=== PATIENT | male | born 1980 | race Caucasian/White ===

== ENCOUNTER 2018-04-24 10:38 | Emergency (ER) | payer OTHER, MEDICAID, SELFPAY ==
[2018-04-24 10:33] VITALS: BP 116/72; PULSE 59; RESP 14; TEMP 36.8; O2SAT 99
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
--- NOTE | 2018-04-24 10:48 | DI.CT.S_ITS ---
PROCEDURE: CT CERVICAL SPINE WO CON INDICATIONS: Neck pain after fall TECHNIQUE: Noncontrast 3 mm thick sections acquired from the skull base to the T4 level. Sagittal and coronal reformats were then constructed. For radiation dose reduction, the following was used: automated exposure control, adjustment of mA and/or kV according to patient size. COMPARISON: None. FINDINGS: Image quality: Excellent. Bones: No fractures or dislocations. Visualized superior ribs are intact. Soft tissues: Prevertebral soft tissues are normal in thickness. No paravertebral hematomas. No apical pneumothoraces. IMPRESSION: No visualized fracture. Dictated by: Gabby Bryant M.D. on 04/24/2018 at 11:16 Approved by: Gabby Bryant M.D. on 04/24/2018 at 11:17
[2018-04-24 10:58] LABS: Add Manual Diff / Slide Review NO; Basophils Percent Auto 1.1 % (0-2); Eosinophils Percent Auto 2.7 % (2-4); Hematocrit 42.7 % (41-53); Hemoglobin 14.5 g/dL (13.5-17.5); Lymphocytes Percent Auto 30.6 % (25-40); Mean Corpuscular HGB Conc 34.1 % (30-36); Mean Corpuscular Hemoglobin 33.4 PG (26-34); Monocytes Percent Auto 8.1 % (3-14); Neutrophils Absolute Auto 3000 /uL (3000-5900); Neutrophils Percent Auto 57.5 % (50-75); Platelet Count 215 X10^3/uL (150-400); Red Blood Cell Count 4.35 X10^6/uL (4.5-5.9); Red Cell Distribution Width 12.6 % (11.6-14.8); White Blood Cell Count 5.2 X10^3/uL (4.5-11.0)
--- NOTE | 2018-04-24 11:00 | PC.NURSE ---
1030: Pt c/o neck pain w/ movement. No point tenderness. Placed in rigid collar. MD aware. Neuro intact.
[2018-04-24 11:02] LABS: INR 1.1 (0.9-1.3); Prothrombin Time 11.6 SECONDS (10.1-12.7)
[2018-04-24 11:05] LABS: PTT Partial Thromboplastin Tim 26 SECONDS (26.4-36.2)
[2018-04-24 11:08] LABS: Alanine Aminotransferase 31 IU/L (21-72); Albumin 4.2 g/dL (3.5-5.0); Albumin Globulin Ratio 1.7 (1.0-2.8); Alkaline Phosphatase 54 U/L (38-126); Aspartate Aminotransferase 24 IU/L (17-59); BUN Creatinine Ratio 18.8 (6-22); Bilirubin Total 0.6 mg/dL (0.2-1.3); Blood Urea Nitrogen 15 mg/dL (9-20); Carbon Dioxide 28 mmol/L (22-32); Chloride 107 mmol/L (98-107); Estimated Glomerular Filt Rate > 60.0 mL/min (>60); Ethanol (ETOH) < 10 mg/dL; Globulin 2.5 g/dL (1.7-4.1); Glucose 96 mg/dL (70-100); HEMOLYSIS < 15 (0-50); Lipase 45 U/L (23-300); Potassium 4.4 mmol/L (3.4-5.1); Sodium 144 mmol/L (137-145); Total Protein 6.7 g/dL (6.3-8.2)
[2018-04-24 11:09] VITALS: BP 104/68; PULSE 68; RESP 15; O2SAT 98
[2018-04-24 11:24] LABS: Prolactin 30.1 ng/mL (3.7-17.9)
[2018-04-24 12:04] VITALS: BP 114/71; PULSE 62; RESP 16; O2SAT 100
[2018-04-24 13:00] VITALS: BP 111/73; PULSE 63; RESP 18; O2SAT 98
[2018-04-24 13:32] VITALS: BP 125/61; PULSE 65; RESP 15; O2SAT 99
== END 2018-04-24 13:56 | disposition home or self-care (01) ==
PROVIDERS: Emergency Provider Emergency Medicine
DX: R56.9 Unspecified convulsions (principal)
CPT/HCPCS: 70450; 72125; 80053; 80320; 83690; 84146; 85025; 85610; 85730; 93005; 99283; 99285; 99291

== ENCOUNTER 2020-05-11 09:31 | Emergency (ER) | payer OTHER, MEDICAID, SELFPAY ==
[2020-05-11] VITALS (26 sets, daily range): BP systolic 105–140; BP diastolic 49–89; PULSE 56–84; RESP 9–24; TEMP 36.3–36.9; O2SAT 93–100
--- NOTE | 2020-05-11 09:40 | ED.GENADULT ---
HPI - General Adult General Chief complaint: Seizure Stated complaint: seizure Time Seen by Provider: 05/11/20 09:35 Source: patient and EMS Mode of arrival: EMS Limitations: other (Somewhat postictal) History of Present Illness HPI narrative: Patient is a 40-year-old male. Known history of seizures since age of 37. Is currently taking seizure medication (trileptal) per his . Brought in by EMS after having multiple seizures this morning. not immediately available for discussion however EMS states that she told them that he has not had a seizure in almost a year. states she has been making sure he has been taking his seizure medication on a daily basis. Patient states that he has headache in this tired but has no other complaints. Shortly after arrival he did start having vomiting. Related Data Home Medications Medication Instructions Recorded Confirmed gabapentin 1,200 mg PO BID 05/11/20 05/11/20 ibuprofen 200 mg PO Q6H PRN 05/11/20 05/11/20 oxcarbazepine 300 mg PO BID 05/11/20 05/11/20 sertraline 50 mg PO BEDTIME 05/11/20 05/11/20 Allergies Allergy/AdvReac Type Severity Reaction Status Date / Time Penicillins Allergy Severe Anaphylaxis Verified 05/11/20 09:55 Review of Systems Constitutional Constitutional: Reports headache(s) ENT Ears, Nose, Mouth, and Throat: Reports headache(s) Cardiovascular Cardiovascular: Denies chest pain and Denies dyspnea Respiratory Respiratory: Denies dyspnea Gastrointestinal Gastrointestinal: Denies abdominal pain, Reports nausea and Reports vomiting Genitourinary Genitourinary: Denies dysuria Genitourinary: Denies dysuria Musculoskeletal Musculoskeletal: Denies arthralgias and Denies myalgias Integumentary/Breasts Skin/Breast: Denies rash Neurologic Neurologic: Reports confusion, Reports headache(s) and Reports seizure-like activity Psychiatric Psychiatric: Reports confusion Hematologic/Lymphatic Hematologic/Lymphatic: Denies easy bleeding and Denies easy bruising Patient History Medical History DVT of upper extremity (deep vein thrombosis) Pacemaker Syncope and collapse Surgical History (Updated 04/24/18 @ 12:45 by Zana Pereira DO) History of permanent cardiac pacemaker placement Social History marital status: Smoking Status: Current every day smoker Smoking Status: Current every day smoker alcohol intake frequency: 0-2 drinks per day Substance Use Type: marijuana Exam Initial Vital Signs Initial Vital Signs: Vital Signs Temperature 97.4 F L 05/11/20 09:35 Pulse Rate 72 05/11/20 09:35 Respiratory Rate 22 05/11/20 09:35 Blood Pressure 135/80 05/11/20 09:35 Pulse Oximetry 99 05/11/20 09:35 Const General: comfortable and well groomed HENMT Head: normal to inspection and normocephalic Resp Effort & Inspection: normal respiratory effort Auscultation: clear to auscultation bilaterally Cardio Rate: regular rate Rhythm: regular rhythm GI Inspection: non-distended Palpation: soft Skin Lesions: no lesions Rashes: no rashes Neuro General: patient alert and patient awake Cognition: normal cognition Speech: speech normal Extrem General: normal to inspection and capillary refill normal Psych Appearance: grossly normal and well kempt Course Orders Ordered: ED Orders 05/11/20 10:15 Urinalysis and Microscopic Stat Urine Drug Screen, Rapid Stat 05/11/20 10:25 COVID19 Stat 05/11/20 16:23 CT head/brain wo con Stat Sodium Chloride (Normal Saline 0.9%) 1,000 mls @ 125 mls/hr IV CONT LUX Last Infusion: 05/11/20 16:50 Dose: 0 mls/hr Documented by: Admin: 05/11/20 09:56 Dose: 125 mls/hr Documented by: STEFANIE Discontinued Medications Fosphenytoin Sodium 1,200 mg/ (Sodium Chloride) 124 mls @ 248 mls/hr IV NOW ONE Stop: 05/11/20 17:44 Last Admin: 05/11/20 17:38 Dose: 248 mls/hr Documented by: STEFANIE Ketorolac Tromethamine (Ketorolac 60 Mg/2 Ml Vial) 30 mg IV NOW ONE Stop: 05/11/20 09:58 Last Admin: 05/11/20 09:59 Dose: 30 mg Documented by: STEFANIE Lorazepam (Lorazepam 2 Mg/Ml Inj) 2 mg IV NOW ONE Stop: 05/11/20 10:31 Last Admin: 05/11/20 11:04 Dose: Not Given Documented by: STEFANIE Ondansetron HCl (Ondansetron 4 Mg/2 Ml Inj) 4 mg IV NOW ONE Stop: 05/11/20 09:43 Last Admin: 05/11/20 09:55 Dose: 4 mg Documented by: STEFANIE Ondansetron HCl (Ondansetron 4 Mg/2 Ml Inj) 4 mg IV NOW ONE Stop: 05/11/20 13:05 Last Admin: 05/11/20 13:08 Dose: 4 mg Documented by: STEFANIE Vital Signs Vital signs: Vital Signs - 8 hr 05/11/20 11:00 05/11/20 11:30 05/11/20 12:00 Temperature Pulse Rate 71 70 70 Respiratory Rate Blood Pressure 131/77 135/81 110/53 L Pulse Oximetry 98 97 97 05/11/20 12:30 05/11/20 12:37 05/11/20 13:00 Temperature Pulse Rate 69 74 82 Respiratory Rate Blood Pressure 137/49 L 111/55 L 122/76 Pulse Oximetry 97 97 05/11/20 13:30 05/11/20 14:00 05/11/20 14:09 Temperature Pulse Rate 71 68 56 L Respiratory Rate 15 16 9 L Blood Pressure 128/65 135/78 140/72 Pulse Oximetry 97 93 05/11/20 14:30 05/11/20 15:00 05/11/20 15:30 Temperature Pulse Rate 70 82 77 Respiratory Rate 14 15 16 Blood Pressure 119/64 123/76 105/56 L Pulse Oximetry 97 98 97 05/11/20 16:00 05/11/20 16:26 05/11/20 16:33 Temperature Pulse Rate 82 69 76 Respiratory Rate 16 11 L Blood Pressure 111/59 L 122/89 Pulse Oximetry 97 93 95 05/11/20 16:34 05/11/20 17:00 05/11/20 17:30 Temperature Pulse Rate 66 70 80 Respiratory Rate 19 15 14 Blood Pressure 127/76 123/67 122/71 Pulse Oximetry 96 97 96 05/11/20 18:00 05/11/20 18:04 05/11/20 18:30 Temperature 98.5 F Pulse Rate 78 72 84 Respiratory Rate 19 Blood Pressure 133/74 126/77 112/62 Pulse Oximetry 94 97 Medical Decision Making Medical Records Medical records reviewed: Yes I reviewed the patient's medical records. Lab Data Lab results reviewed: Yes I reviewed the patient's lab results. Result diagrams: 05/11/20 09:30 05/11/20 09:30 Labs: Lab Results 05/11/20 05/11/20 05/11/20 Range/Units 09:30 09:30 10:15 WBC 5.8 (4.5-11.0) X10^3/uL RBC 4.36 L (4.5-5.9) X10^6/uL Hgb 14.6 (13.5-17.5) g/dL Hct 42.2 (41-53) % MCV 96.8 (80-100) fL MCH 33.4 (26-34) PG MCHC 34.5 (30-36) % RDW 12.8 (11.6-14.8) % Plt Count 283 (150-400) X10^3/uL Neut % (Auto) 73.0 (50-75) % Lymph % (Auto) 19.2 L (25-40) % [place] % (Auto) 6.3 (3-14) % Eos % (Auto) 0.6 L (2-4) % Baso % (Auto) 0.9 (0-2) % Neut # (Auto) 4300 (5074-0220) /uL Lymph # (Auto) 1100 (6184-3103) /uL [place] # (Auto) 400 (0-900) /uL Eos # (Auto) 0 (0-450) /uL Baso # (Auto) 100 (0-100) /uL Sodium 131 L (137-145) mmol/L Potassium 5.0 (3.4-5.1) mmol/L Chloride 99 (98-107) mmol/L Carbon Dioxide 30 (22-32) mmol/L BUN 12 (9-20) mg/dL Creatinine 0.69 (0.66-1.25) mg/dL Estimated GFR > 60.0 (>60) mL/min BUN/Creatinine Ratio 17.4 (6-22) Glucose 116 H (70-100) mg/dL Calcium 8.9 (8.4-10.2) mg/dL Total Bilirubin 0.4 (0.2-1.3) mg/dL AST 27 (17-59) IU/L ALT 16 (<50) IU/L Alkaline Phosphatase 65 (38-126) U/L Total Protein 7.0 (6.3-8.2) g/dL Albumin 4.4 (3.5-5.0) g/dL Globulin 2.6 (1.7-4.1) g/dL Albumin/Globulin Ratio 1.7 (1.0-2.8) Lipase 305 H (23-300) U/L Prolactin 25.2 H (3.7-17.9) ng/mL Urine Color Yellow Urine Appearance Clear Urine pH 6.5 (4.5-8.0) Ur Specific [place] 1.020 (1.000-1.035) Urine Protein Negative (Negative) Urine Glucose (UA) Negative (Negative) g/dL Urine Ketones Negative (NEGATIVE) Urine Occult Blood Negative (Negative) Urine Nitrate Negative (Negative) Urine Bilirubin Negative (NEGATIVE) Urine Urobilinogen 0.2 (0.2) E.U./dL Ur Leukocyte Esterase Negative (NEGATIVE) Urine RBC None seen (0-5/HPF) Urine WBC 0-1/hpf (0-5/HPF) Urine Bacteria None seen (None) Urine Mucus 1+ H (Negative) Ur Culture Indicated? Cult not indicated U Opiates 300ng/mL cut (Negative) Ur Oxycodone Screen (Negative) Urine Methadone Screen (Negative) Ur Barbiturates Screen (Negative) U Tricyclic Antidepress (Negative) Ur Phencyclidine Scrn (Negative) Ur Amphetamines Screen (Negative) U Methamphetamines Scrn (Negative) Ur MDMA Scrn (Ecstasy) (Negative) U Benzodiazepines Scrn (Negative) Urine Cocaine Screen (Negative) U Marijuana (THC) Screen (Negative) Ethyl Alcohol < 10 ( - 10) mg/dL COVID-19 PCR (Negative) 05/11/20 05/11/20 Range/Units 10:15 10:25 WBC (4.5-11.0) X10^3/uL RBC (4.5-5.9) X10^6/uL Hgb (13.5-17.5) g/dL Hct (41-53) % MCV (80-100) fL MCH (26-34) PG MCHC (30-36) % RDW (11.6-14.8) % Plt Count (150-400) X10^3/uL Neut % (Auto) (50-75) % Lymph % (Auto) (25-40) % [place] % (Auto) (3-14) % Eos % (Auto) (2-4) % Baso % (Auto) (0-2) % Neut # (Auto) (8370-5661) /uL Lymph # (Auto) (7411-0478) /uL [place] # (Auto) (0-900) /uL Eos # (Auto) (0-450) /uL Baso # (Auto) (0-100) /uL Sodium (137-145) mmol/L Potassium (3.4-5.1) mmol/L Chloride (98-107) mmol/L Carbon Dioxide (22-32) mmol/L BUN (9-20) mg/dL Creatinine (0.66-1.25) mg/dL Estimated GFR (>60) mL/min BUN/Creatinine Ratio (6-22) Glucose (70-100) mg/dL Calcium (8.4-10.2) mg/dL Total Bilirubin (0.2-1.3) mg/dL AST (17-59) IU/L ALT (<50) IU/L Alkaline Phosphatase (38-126) U/L Total Protein (6.3-8.2) g/dL Albumin (3.5-5.0) g/dL Globulin (1.7-4.1) g/dL Albumin/Globulin Ratio (1.0-2.8) Lipase (23-300) U/L Prolactin (3.7-17.9) ng/mL Urine Color Urine Appearance Urine pH (4.5-8.0) Ur Specific [place] (1.000-1.035) Urine Protein (Negative) Urine Glucose (UA) (Negative) g/dL Urine Ketones (NEGATIVE) Urine Occult Blood (Negative) Urine Nitrate (Negative) Urine Bilirubin (NEGATIVE) Urine Urobilinogen (0.2) E.U./dL Ur Leukocyte Esterase (NEGATIVE) Urine RBC (0-5/HPF) Urine WBC (0-5/HPF) Urine Bacteria (None) Urine Mucus (Negative) Ur Culture Indicated? U Opiates 300ng/mL cut Negative (Negative) Ur Oxycodone Screen Negative (Negative) Urine Methadone Screen Negative (Negative) Ur Barbiturates Screen Negative (Negative) U Tricyclic Antidepress Negative (Negative) Ur Phencyclidine Scrn Negative (Negative) Ur Amphetamines Screen Negative (Negative) U Methamphetamines Scrn Negative (Negative) Ur MDMA Scrn (Ecstasy) Negative (Negative) U Benzodiazepines Scrn Negative (Negative) Urine Cocaine Screen Negative (Negative) U Marijuana (THC) Screen Positive H (Negative) Ethyl Alcohol ( - 10) mg/dL COVID-19 PCR Negative (Negative) Imaging Data CT scan - head: Radiologist's Impression: [address] [id number] Scan ReportSigned Patient: Zana Corona LMR#: [id number]: 1980Acct:[id number]/Sex: 40 / MDate of Service: 05/11/20Loc: EDAccession Number: [id number] Procedure: CT head/brain wo con Ordering Provider: Zana Pereira D.O. PROCEDURE: CT HEAD/BRAIN WO CON INDICATIONS: AMS TECHNIQUE: Noncontrast 4.5 mm thick angled axial sections acquired from the foramen magnum to the vertex, with coronal and sagittal reformats. For radiation dose reduction, the following was used: automated exposure control, adjustment of mA and/or kV according to patient size. COMPARISON: [facility], CT, CT BRAIN WO CON, 04/25/2016, 10:10. [facility], CT, CT HEAD/BRAIN WO CON, 04/24/2018, 10:45. FINDINGS: Image quality: Excellent. CSF spaces: Basal cisterns are patent. No extra-axial fluid collections. Ventricles are normal in size and shape. Brain: No midline shift. No intracranial masses or hemorrhage. Perry-white matter interface is normal. Skull and face: Calvarium and visualized facial bones are intact, without suspicious lesions. Sinuses: Visualized sinuses and mastoids are clear. IMPRESSION: Unremarkable intracranial study for age, without a cause of the presenting symptoms identified. Dictated by: Billy Quintanilla M.D. on 05/11/2020 at 15:43 Approved by: Billy Quintanilla M.D. on 05/11/2020 at 15:44 3 ECG Data Attestation: I personally reviewed and interpreted this ECG as follows: Prior ECG tracings: not available for review Interpretation: Sinus rhythm LVH Normal axis Normal QRS MDM Narrative Medical decision making narrative: [age] history of seizures. He is followed by Dr. Pineda at [facility]. Is currently on 2 anticonvulsant medications. Had what appears to be 3 generalized tonic-clonic seizures this morning. His girlfriend is at bedside and states that he normally has focal/partial seizures. He has never had generalized tonic-clonic in the past. After the 3rd seizure she contacted EMS. Upon arrival patient was confused. He then fell asleep. He then had 1 further generalized tonic clonic here in the emergency department with his by myself. Lasted less than 30 seconds. He was given 2 mg of Ativan afterwards. He was then observed in the emergency department for several hours afterwards. He had episodes where he would have nausea had become diaphoretic and appeared to be confused. Initially I thought this was secondary to the multiple seizures he had this morning, the Ativan, and the fact that he just tried to drink fluids. At 1 point he was able to stand up and walk to the bathroom. He urinated without problems. When he came back and sat down in the chair he had another episode that was then witnessed by me where he was hyper salivating, became very diaphoretic and seemed to be very confused as to what was going on. I then ordered a head CT which is unremarkable. I then contacted Dr. pineda again who recommended giving 1200 mg of fosphenytoin which is being administered and he also recommended transferring the patient to [facility] for continuous EEG monitoring and further evaluation by Neurology. Then discussed the case with Dr. Pennington with neurology who accepts the patient for transfer. Will transfer the patient by ALS. Patient is currently Stable for transfer. Discharge Plan Departure Patient Disposition: [facility] Clinical Impression: Seizure Prescriptions: No Action oxcarbazepine 300 mg tablet 300 mg PO BID RF: 0 sertraline 50 mg tablet 50 mg PO BEDTIME RF: 0 gabapentin 400 mg capsule 1,200 mg PO BID RF: 0 ibuprofen 200 mg Tablet 200 mg PO Q6H PRN (Reason: Pain, Mild) RF: 0
[2020-05-11 09:44] LABS: Add Manual Diff / Slide Review NO; Basophils Absolute Auto 100 /uL (0-100); Basophils Percent Auto 0.9 % (0-2); Eosinophils Absolute Auto 0 /uL (0-450); Eosinophils Percent Auto 0.6 % (2-4); Hematocrit 42.2 % (41-53); Hemoglobin 14.6 g/dL (13.5-17.5); Lymphocytes Absolute Auto 1100 /uL (1100-4500); Lymphocytes Percent Auto 19.2 % (25-40); Mean Corpuscular HGB Conc 34.5 % (30-36); Mean Corpuscular Hemoglobin 33.4 PG (26-34); Mean Corpuscular Volume 96.8 fL (80-100); Monocytes Absolute Auto 400 /uL (0-900); Monocytes Percent Auto 6.3 % (3-14); Neutrophils Absolute Auto 4300 /uL (1500-7000); Platelet Count 283 X10^3/uL (150-400); Red Blood Cell Count 4.36 X10^6/uL (4.5-5.9); Red Cell Distribution Width 12.8 % (11.6-14.8); White Blood Cell Count 5.8 X10^3/uL (4.5-11.0)
[2020-05-11 09:55] LABS: Alanine Aminotransferase 16 IU/L (<50); Albumin 4.4 g/dL (3.5-5.0); Albumin Globulin Ratio 1.7 (1.0-2.8); Alkaline Phosphatase 65 U/L (38-126); Aspartate Aminotransferase 27 IU/L (17-59); BUN Creatinine Ratio 17.4 (6-22); Bilirubin Total 0.4 mg/dL (0.2-1.3); Blood Urea Nitrogen 12 mg/dL (9-20); Calcium 8.9 mg/dL (8.4-10.2); Carbon Dioxide 30 mmol/L (22-32); Chloride 99 mmol/L (98-107); Estimated Glomerular Filt Rate > 60.0 mL/min (>60); Ethanol (ETOH) < 10 mg/dL; Globulin 2.6 g/dL (1.7-4.1); Glucose 116 mg/dL (70-100); HEMOLYSIS 31 (0-50); Lipase 305 U/L (23-300); Sodium 131 mmol/L (137-145)
[2020-05-11] MEDS: ONDANSETRON 4 MG/2 ML INJ IV ×2 (09:55→13:08)
[2020-05-11] MEDS: SODIUM CHLORIDE 0.9% 1,000 ML 125 ML IV (09:56)
[2020-05-11] MEDS: KETOROLAC 60 MG/2 ML VIAL 30 MG IV (09:59)
[2020-05-11 10:11] LABS: Prolactin 25.2 ng/mL (3.7-17.9)
[2020-05-11] MEDS: LORazepam 2 MG/ML INJ (10:30)
--- NOTE | 2020-05-11 10:58 | PC.NURSE ---
pt has a DDI 40-[address] st venessa pacemaker
--- NOTE | 2020-05-11 11:01 | PC.NURSE ---
pt had a seizure at 1030. Dr. Pereira performing jaw thrust. suction at bedside. ativan given. pt is sleeping. seizure lasted 5 mins.
[2020-05-11 11:06] LABS: Bacteria Urine None Seen; RBC Urine None Seen (0-5/HPF)
[2020-05-11 11:07] LABS: Appearance Urine UA CLEAR; Bilirubin Urine UA NEGATIVE (NEGATIVE); Color Urine UA YELLOW; Glucose Urine UA NEGATIVE (Negative); Ketones Urine UA NEGATIVE (NEGATIVE); Leukocyte Esterase Urine UA NEGATIVE (NEGATIVE); Nitrite Urine UA NEGATIVE (Negative); Occult Blood Urine UA NEGATIVE (Negative); Protein Urine UA NEGATIVE (Negative); Urobilinogen Urine UA 0.2 E.U./dL (0.2); pH Urine UA 6.5 (4.5-8.0)
[2020-05-11 11:23] LABS: COVID19 -Nasal RAPID Negative (Negative)
[2020-05-11 11:24] LABS: Culture Indicated Urine Cult Not Indicated; Mucus Urine 1+ (Negative); WBC Urine 0-1/HPF (0-5/HPF)
--- NOTE | 2020-05-11 12:05 | PC.NURSE ---
[employer] Pacemaker interrogated
--- NOTE | 2020-05-11 14:55 | PC.NURSE ---
pt started to have symptoms , profuse sweating, ripping leads off. not making eye contact. dr. Pereira aware. prior to having his seizure in the ER, pt had the same symptoms. pt received a total of 2 doses of Zofran for his nausea. vomitted x 2 in ER.
--- NOTE | 2020-05-11 16:23 | DI.CT.S_ITS ---
PROCEDURE: CT HEAD/BRAIN WO CON INDICATIONS: AMS TECHNIQUE: Noncontrast 4.5 mm thick angled axial sections acquired from the foramen magnum to the vertex, with coronal and sagittal reformats. For radiation dose reduction, the following was used: automated exposure control, adjustment of mA and/or kV according to patient size. COMPARISON: [facility], CT, CT BRAIN WO CON, 04/25/2016, 10:10. [facility], CT, CT HEAD/BRAIN WO CON, 04/24/2018, 10:45. FINDINGS: Image quality: Excellent. CSF spaces: Basal cisterns are patent. No extra-axial fluid collections. Ventricles are normal in size and shape. Brain: No midline shift. No intracranial masses or hemorrhage. Perry-white matter interface is normal. Skull and face: Calvarium and visualized facial bones are intact, without suspicious lesions. Sinuses: Visualized sinuses and mastoids are clear. IMPRESSION: Unremarkable intracranial study for age, without a cause of the presenting symptoms identified. Dictated by: Billy Quintanilla M.D. on 05/11/2020 at 15:43 Approved by: Billy Quintanilla M.D. on 05/11/2020 at 15:44
[2020-05-11 16:30] LABS: Ur Creatinine Normal (Normal); Ur Specific Gravity Normal (Normal); Urine pH Normal (Normal)
[2020-05-11 16:31] LABS: UR Morphine/Opiate cutoff 300 Negative (Negative); Urine Amphetamines Negative (Negative); Urine Barbiturates Negative (Negative); Urine Benzodiazepines Negative (Negative); Urine Cocaine Negative (Negative); Urine MDMA Negative (Negative); Urine Methadone Negative (Negative); Urine Methamphetamines Negative (Negative); Urine Oxycodone Negative (Negative); Urine Phencyclidine Negative (Negative); Urine Tetrahydrocannabinol Positive (Negative); Urine Tricyclic Antidepressant Negative (Negative)
--- NOTE | 2020-05-11 16:34 | PC.NURSE ---
pt got up to ambulate to bathroom. pt was talking and confused to place. reports he felt dizzy. unsteady gait. returned to room and sat on the chair. He drank some water. pt started to act strange again. starring at providers . vomitted the water. Dr. Pereira at bedside. assited back to bed. pt not answering questions. pt sent for a ct.
[2020-05-11] MEDS: SODIUM CHLORIDE 0.9% IV (17:38)
[2020-05-11] MEDS: FOSPHENYTOIN IV (17:38)
--- NOTE | 2020-05-11 18:07 | PC.NURSE ---
pt has been having focal type seizures. had another one prior to second iv insertion. at bedside.
== END 2020-05-11 19:20 | disposition short-term general hospital (02) ==
PROVIDERS: Emergency Provider Emergency Medicine; Referring Provider Emergency Medicine
DX: R56.9 Unspecified convulsions (principal); R51.9 Headache, unspecified; R41.0 Disorientation, unspecified; Z95.0 Presence of cardiac pacemaker; I82.629 Acute embolism and thrombosis of deep veins of unspecified upper extremity
CPT/HCPCS: 36415; 70450; 80053; 80305; 80320; 81001; 83690; 84146; 85025; 87635; 93005; 93010; 96361; 96365; 96375; 96376; 99284; J1885; J2060; J2405; Q2009

== ENCOUNTER → 2020-06-28 16:34 | Outpatient (CLI) | payer OTHER, MEDICAID, SELFPAY ==
[2020-06-28 18:17] LABS: Phenytoin / Dilantin 4.2 ug/mL (10-20)
[2020-07-01 04:14] LABS: Oxcarbazepin, Trileptal 17 ug/mL (10-35)
== END ==
PROVIDERS: Referring Provider Psychiatry & Neurology Neurology; Visit Provider Psychiatry & Neurology Neurology
DX: G40.001 Localization-related (focal) (partial) idiopathic epilepsy and epileptic syndromes with seizures of localized onset, not intractable, with status epilepticus (principal)
CPT/HCPCS: 36415; 80183; 80185

== ENCOUNTER 2021-08-07 08:23 | Emergency (ER) | payer OTHER, SELFPAY ==
[2021-08-07 08:34] VITALS: BP 124/76; PULSE 78; RESP 18; TEMP 36.8; O2SAT 99; BMI 22.7
--- NOTE | 2021-08-07 08:38 | DI.RAD.S_ITS ---
PROCEDURE: XR ANKLE LT MIN 3V INDICATIONS: ankle injury TECHNIQUE: 3 views of the ankle were acquired. COMPARISON: None. FINDINGS: Bones: No fractures or dislocations. Ankle mortise is normally aligned. No suspicious bony lesions. Soft tissues: Lateral ankle soft tissue swelling is seen. No tibiotalar joint effusion. Achilles tendon appears normal. IMPRESSION: Lateral ankle soft tissue swelling. No gross acute ankle fracture or dislocation. Ankle mortise is congruent. Dictated by: Marcus Taylor M.D. on 08/07/2021 at 8:54 Approved by: Marcus Taylor M.D. on 08/07/2021 at 8:54
--- NOTE | 2021-08-07 08:40 | ED.LOWEXIN ---
HPI - Extremity Injury (Lower) General Chief Complaint: Extremity Injury, Lower Stated Complaint: Left ankle injury at work Time Seen by Provider: 08/07/21 08:36 Source: patient Mode of arrival: Ambulatory Limitations: no limitations History of Present Illness HPI Narrative: The patient suffered a left ankle injury at work about 8:00 a.m. this morning. 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 He rolled his left ankle, suffering an injury to the left lateral ankle. He has pain swelling around the lateral malleolus. He has significant discomfort when up moving. He did not fall to the ground, injuries are isolated to the left ankle. He has no numbness or weakness in the left foot. He has no prior history of left ankle injuries. Related Data Home Medications Medication Instructions Recorded Confirmed gabapentin 400 mg capsule 1,200 mg PO BID 05/11/20 05/11/20 ibuprofen 200 mg tablet 200 mg PO Q6H PRN 05/11/20 05/11/20 oxcarbazepine 300 mg tablet 300 mg PO BID 05/11/20 05/11/20 sertraline 50 mg tablet 50 mg PO BEDTIME 05/11/20 05/11/20 Allergies Allergy/AdvReac Type Severity Reaction Status Date / Time Penicillins Allergy Severe Anaphylaxis Verified 08/07/21 08:34 Review of Systems Constitutional Constitutional: Denies weakness Comments: No recent illness, no other injuries. Musculoskeletal Musculoskeletal: Denies tingling Comments: Left ankle pain as noted HPI. Integumentary/Breasts Skin/Breast: Denies lesions, Denies rash and Reports skin swelling Neurologic Neurologic: Denies tingling and Denies weakness Patient History Medical History DVT of upper extremity (deep vein thrombosis) Pacemaker Syncope and collapse Surgical History History of permanent cardiac pacemaker placement Social History marital status: Smoking Status: Current every day smoker Smoking Status: Current every day smoker tobacco type: cigarettes alcohol intake frequency: 0-2 drinks per day Substance Use Type: marijuana Exam Initial Vital Signs Initial Vital Signs: Vital Signs Temperature 98.2 F 08/07/21 08:34 Pulse Rate 78 08/07/21 08:34 Respiratory Rate 18 08/07/21 08:34 Blood Pressure 124/76 08/07/21 08:34 Pulse Oximetry 99 08/07/21 08:34 Const General: cooperative, healthy appearing and comfortable [facility] Head: normocephalic and atraumatic Neuro General: patient alert, patient awake and patient oriented x3 Extrem Other: Left calf is nontender. Left Achilles region is nontender. Tenderness with edema over the lateral malleolus without palpable deformity. No left ankle laxity. Left foot is nontender. The dorsalis pedis pulses normal. Left foot capillary refill is normal. Psych Mental Status: mental status grossly normal Procedures Orthopedic Splinting/Casting Injury #1: Side: left Lower Extremity Injury Location: ankle Lower Extremity Immobilizer: [employer] Post splinting neuro exam: intact Post splinting vascular exam: intact Placed by: Nursing Course Orders Ordered: ED Orders 08/07/21 08:38 XR ankle LT min 3V Stat Vital Signs Vital signs: Vital Signs - 8 hr 08/07/21 08:34 Temperature 98.2 F Pulse Rate 78 Respiratory Rate 18 Blood Pressure 124/76 Pulse Oximetry 99 MDM - Extremity Injury (Lower) Imaging Data Left ankle x-ray:: Radiologist's Impression: ?Lateral ankle soft tissue swelling.? No gross acute ankle fracture or dislocation.? Ankle mortise is congruent.? Discharge Plan Departure Patient Disposition: Home Clinical Impression: Moderate left ankle sprain Instructions: Ankle Sprain Activity Restrictions/Additional Instructions: Apply ice over your left ankle frequently for the next 2 days. Tylenol or Advil as needed for pain. A splint has been applied, this is to assist with mobility. Wean from the splint as tolerated. If not improved in 10 days, follow-up with your doctor. Return here as necessary. Prescriptions: No Action oxcarbazepine 300 mg tablet 300 mg PO BID 0RF sertraline 50 mg tablet 50 mg PO BEDTIME 0RF Label Comments: take 1 tablet by mouth at bedtime gabapentin 400 mg capsule 1,200 mg PO BID 0RF ibuprofen 200 mg Tablet 200 mg PO Q6H PRN (Reason: Pain, Mild) 0RF Stand Alone Forms: Work Release Note
[2021-08-07 10:01] VITALS: BP 124/61; PULSE 70; RESP 16; O2SAT 99
== END 2021-08-07 10:04 | disposition home or self-care (01) ==
PROVIDERS: Emergency Provider Emergency Medicine
DX: S93.402A Sprain of unspecified ligament of left ankle, initial encounter (principal); F17.210 Nicotine dependence, cigarettes, uncomplicated; X50.1XXA Overexertion from prolonged static or awkward postures, initial encounter; Y93.89 Activity, other specified; Y99.0 Civilian activity done for income or pay
CPT/HCPCS: 73610; 99283

== ENCOUNTER → 2022-02-14 08:27 | Outpatient (CLI) | payer OTHER, MEDICAID, SELFPAY ==
[2022-02-19 18:40] LABS: Oxcarbazepin, Trileptal 13 ug/mL (10-35)
== END ==
PROVIDERS: Referring Provider Psychiatry & Neurology Neurology; Visit Provider Psychiatry & Neurology Neurology
DX: G40.009 Localization-related (focal) (partial) idiopathic epilepsy and epileptic syndromes with seizures of localized onset, not intractable, without status epilepticus (principal)
CPT/HCPCS: 36415; 80183; 80185; 80186

== ENCOUNTER 2022-04-06 22:11 | Emergency (ER) | payer OTHER, MEDICAID, SELFPAY ==
[2022-04-06 22:29] VITALS: BP 122/69; PULSE 74; RESP 16; TEMP 36.7; O2SAT 99; BMI 21.1
== END 2022-04-07 00:30 | disposition left against medical advice (07) ==
PROVIDERS: Emergency Provider Emergency Medicine
DX: Z76.0 Encounter for issue of repeat prescription (principal); Z53.21 Procedure and treatment not carried out due to patient leaving prior to being seen by health care provider
CPT/HCPCS: 99281